=== PATIENT | female | born 1990 | race Caucasian/White ===

== ENCOUNTER → 2017-02-26 | Day surgery (SDC) | payer OTHER ==
[~2017-02-26] MED LIST: AUGMENTIN PO; DEPO-PROVER150 MG/ML INJ; FLEXERIL PO; IBUPROFEN800 MG PO; NAPROSYN500 MG PO; PRENATAL1 TA1 PO; PRILOSEC PO; RECTICARE30 GM TOP; ZOFRAN ODT4 MG PO
--- NOTE | ~2017-02-26 | OR ---
Unit #: [id number] #: [id number] Patient: EDVIN PRATT [id number] [address] [place], [place] [address] [id number] MR#: [id number] NAME: EDVIN PRATT ROOM: Date of Procedure: 02/26/2017 Admission Date: 02/26/2017 Surgeon: Edmond Sawant M.D. : 1990 Attending Physician: Edmond Sawant M.D. Referring Physician: Edmond Sawant M.D. Primary Care Physician: Bella [facility] OPERATIVE REPORT PREOPERATIVE DIAGNOSIS Anal fissure. POSTOPERATIVE DIAGNOSIS Anal fissure. PROCEDURES PERFORMED 1. Examination under anesthesia. 2. Left lateral partial internal sphincterotomy. 3. Excision of anterior midline sentinel pile. ANESTHESIA General LMA anesthesia with 0.5% Marcaine plain local anesthesia. FINDINGS The patient was found to have an anterior midline anal fissure and sentinel pile. This was excised and a left lateral partial internal sphincterotomy was performed. There was good sphincter tone after the procedure. SPECIMENS None. COMPLICATIONS None apparent. CONDITION The patient tolerated the procedure well. INDICATIONS FOR PROCEDURE The patient is a 26-year-old female who had severe anal pain over the last several months. She was evaluated by Dr. Edgardo Amaya of GI medicine and on flexible sigmoidoscopy with monitored anesthesia care, was found to have an anal fissure and sentinel pile. She presents at this time for examination under anesthesia and possible lateral partial internal sphincterotomy. DESCRIPTION OF PROCEDURE After obtained informed consent as well as receiving preoperative antibiotics, the patient was brought to the operating room and after adequate general LMA anesthesia was obtained, she was placed very carefully into the lithotomy position using candy-cane stirrups. All Unit #: [id number] #: [id number] Patient: EDVIN PRATT extremities manipulated very carefully and all pressure points carefully padded. Her perineum and perianal areas prepped and draped in a sterile fashion. The patient had an anterior midline sentinel pile present. Her anal sphincter was gently dilated with one, then two, then three fingers with KY jelly. An anoscope was placed into proper position. The patient was found to have an anterior midline anal fissure. No other obvious abnormalities were seen. At this point in time, a bivalve rectal retractor was placed. The intersphincteric groove between the internal and external sphincter was palpated. Using an 11 blade parallel to the sphincters, an 11 blade was placed between the sphincters and the intersphincteric groove. The blade was rotated 90 degrees toward the anal opening. With a finger in the anal canal, the internal sphincter was partially divided. The blade was then rotated back 90 degrees and removed. The bivalve retractor was removed. Pressure was held with good hemostasis at the site of the incision. At this point in time, an electrocautery was used to excise the anterior midline sentinel pile. The skin and mucosa were reapproximated with a running locking 2-0 chromic suture. The area was infiltrated in a perianal block using 0.5% Marcaine plain local anesthesia. A Gelfoam pack was placed into the anal canal. 4x4s were placed followed by an ABD pad and mesh panties. Needle counts, sponge counts, and instrument counts were all correct as reported by the scrub nurse x2. The patient went from the operating room to recovery room in stable condition. Dictated by... Jan Chan/dhiraj TD: 02/26/2017 23:51 JOB #: [id number] Edgardo Amaya M.D. [facility] OPERATIVE REPORT Page 1 of 1 X Edmond Sawant MD X PROCEDURE OPERATIVE NOTE
== END | disposition home or self-care (01) ==
LOC: CSUR 05:46
DX: K60.2 Anal fissure, unspecified (principal); K64.4 Residual hemorrhoidal skin tags; J45.909 Unspecified asthma, uncomplicated; K21.9 Gastro-esophageal reflux disease without esophagitis; F17.200 Nicotine dependence, unspecified, uncomplicated; K58.9 Irritable bowel syndrome, unspecified
CPT/HCPCS: 84703; J1100; J2250; J2405; J3010